=== PATIENT | female | born 1995 | race Caucasian/White ===

== ENCOUNTER → 2016-10-04 | Outpatient (CLI) | payer OTHER ==
[2016-10-04 20:00] LABS: BASO # 0.1 K/mm3 (0.0-0.2); BASO % 0.5 % (0.0-1.0); EOS # 0.1 K/mm3 (0.0-0.50); EOS % 0.8 % (0.0-3.0); LARGE UNSTAINED CELL # 0.2 K/mm3 (0.0-0.4); LARGE UNSTAINED CELL % 1.1 % (0.0-4.0); LYMPH # 2.9 K/mm3 (1.5-6.5); LYMPH % 17.9 % (24.0-44.0); MEAN CORPUSCULAR HEMOGLOBIN 31.4 pg (27.0-33.0); MEAN CORPUSCULAR VOLUME 95.2 fl (80.0-96.0); MONO # 0.8 K/mm3 (0.0-0.8); MONO % 5.1 % (0.0-5.0); NEUTROPHILS # 11.4 K/mm3 (1.8-7.7); NEUTROPHILS % 74.6 % (36.0-66.0); PLATELET COUNT, AUTOMATED 358 k/mm3 (150-450); RED CELL DISTRIBUTION WIDTH 12.6 % (11.5-14.5); WHITE BLOOD COUNT 15.3 K/mm3 (4.0-10.0)
--- NOTE | 2016-10-04 22:11 | REP ---
Clinical: Anatomical evaluation. Comparison: 08/05/2016 . Findings: Examination demonstrates a single live intrauterine in breech presentation. motion is identified by technologist. Placenta is noted anteriorly and grade one without evidence for placenta previa or abruption. Amniotic fluid volume is normal. Cervix measures 5.7 cm in length and appears closed. No evidence for nuchal cord. Gestational age by first ultrasound 28 weeks 6 days with MACEY 12/21/2016 . Gestational age by current measurements 28 weeks 1 day with MACEY 12/26/2016 . FHR equals 144 beats per minute. Amniotic fluid index equals 9.6 cm (9.2 - 23.1) Estimated weight 1170 grams ( 24th percentile). Anatomical assessment demonstrates normal structures including cranium, choroid plexus, cavum, cerebellum/posterior fossa, facial features, lungs, four-chamber heart/ventricular outflow tracts, diaphragm, stomach, three-vessel cord, bladder, spine, and extremities. Mild renal pelviectasis (left greater than right) Impression: single live intrauterine in breech presentation demonstrating appropriate interval growth. Mild renal pelviectasis noted which may warrant follow-up. In conjunction with prior examination anatomical assessment is otherwise complete and normal. Signed by Jose Paez MD 10/04/2016 10:03 P
== END | disposition home or self-care (01) ==
LOC: M SMT 12:40
PROVIDERS: ATTEND Advanced Practice Midwife
DX: O32.1XX0 Maternal care for breech presentation, not applicable or unspecified (principal); Z36 Encounter for antenatal screening of mother; Z3A.28 28 weeks gestation of pregnancy; O36.8930 Maternal care for other specified fetal problems, third trimester, not applicable or unspecified

== ENCOUNTER → 2016-11-15 | Outpatient (CLI) | payer OTHER ==
--- NOTE | 2016-11-15 15:04 | REP ---
Clinical: Anatomical evaluation. Comparison: 10/04/2016 . Findings: Examination demonstrates a single live intrauterine in cephalic presentation. motion is identified by technologist. Placenta is noted anteriorly and grade one without evidence for placenta previa or abruption. Amniotic fluid volume is normal. Gestational age by first ultrasound 34 weeks 6 days with MACEY 12/21/2016 . Gestational age by current measurements 33 weeks 1 day with MACEY 01/02/2017 . FHR equals 144 beats per minute. Estimated weight 2407 grams ( 38th percentile). Amniotic fluid index equals 15.5 cm (7.9 - 24.9) SD ratio equals 2.41 (2.00 - 3.00). Left renal hydronephrosis appreciated. Impression: Single live intrauterine in cephalic presentation demonstrating appropriate interval growth. Amniotic fluid index normal. Left renal hydronephrosis; followup ultrasound is recommended. Signed by Jose Paez MD 11/15/2016 02:55 P
== END ==
LOC: M SMT 13:48
PROVIDERS: ATTEND Advanced Practice Midwife
DX: Z34.83 Encounter for supervision of other normal pregnancy, third trimester (principal)

== ENCOUNTER → 2016-11-22 | Outpatient (CLI) | payer OTHER ==
[2016-11-22 18:19] LABS: MEAN CORPUSCULAR HEMOGLOBIN 31.4 pg (27.0-33.0); MEAN CORPUSCULAR HGB CONC 34.5 g/dl (32.0-36.5); MEAN CORPUSCULAR VOLUME 91.1 fl (80.0-96.0); RED CELL DISTRIBUTION WIDTH 12.3 % (11.5-14.5); WHITE BLOOD COUNT 10.1 K/mm3 (4.0-10.0)
[2016-11-22 18:40] LABS: ALT/SGPT 21 U/L (12-78); AST/SGOT 14 U/L (15-37); BILIRUBIN,TOTAL 0.2 MG/DL (0.2-1.0); CREATININE FOR GFR 0.54 MG/DL (0.55-1.02); GLOMERULAR FILTRATION RATE > 60.0 (>60); URIC ACID 3.5 MG/DL (2.6-6.0)
== END ==
LOC: M SMT 14:25
PROVIDERS: ATTEND Advanced Practice Midwife
DX: O16.3 Unspecified maternal hypertension, third trimester (principal)

== ENCOUNTER 2016-12-29 10:56 | Inpatient (IN) | payer OTHER ==
[~2016-12-29] VITALS: Ht 162.6 cm; Wt 82.0 kg
[2016-12-29] MEDS ORDERED: TYLE325T5 PO (11:06)
[2016-12-29] MEDS ORDERED: ANTA500C PO (11:06)
[2016-12-29] MEDS ORDERED: PRENTAB9 PO (11:06)
[2016-12-29] MEDS ORDERED: LR 1,000 ML IV SCH (11:51)
[2016-12-29] MEDS ORDERED: OXYTOCIN DRIP 30 UNITS in APPROPRIATE DILUENT 1 EA IV SCH ×2 (12:00→21:33)
[2016-12-29] MEDS ORDERED: LACTATED RINGER'S 1000 ML IV ONE (12:00)
--- NOTE | 2016-12-29 12:20 | HPE ---
DATE OF ADMISSION: 12/29/2016 SUBJECTIVE: Rosemarie is a 21-year-old 1, para 0 at 41 weeks gestation with an EDC of 12/22/2016 based on first trimester ultrasound. She presents to labor and delivery today for induction of labor due to post-term per consult with Dr. Cady Ivey. care was initiated at [facility] in the first trimester. course has been complicated by mild renal pyelectasis. [employer] should be made aware at the time of delivery. OBSTETRICAL HISTORY: Primigravida. OB LABS: A+, antibody screen negative, rubella immune, VDRL nonreactive. Hep B surface antigen negative, HIV negative. Hep C antibody negative. She initially had a positive chlamydia with a test of cure negative on 07/05/2016 and gonorrhea was negative. She did decline all genetic serum screening markers. Her gestational diabetic screening was 63 and she is GBS negative. She did have an isolated elevated blood pressure during her and normal pre-eclamptic profile on labs and spot urine was normal as well and she never had another episode of elevated blood pressure. PAST MEDICAL HISTORY: Childhood varicella. SURGERIES: None. FAMILY HISTORY: Thyroid dysfunction, asthma. SOCIAL HISTORY: The patient is single. The father of baby is at bedside and supportive. She is a nonsmoker. Denies alcohol and drug use. No history of abuse, physical, sexual or emotional and again positive history of chlamydia during . ALLERGIES: No known drug allergies. CURRENT MEDICATIONS: vitamins. OBJECTIVE: Temperature 98.2, pulse 104, respirations 18, BP is 139/85. She is alert and oriented times three. heart rate is 130 with moderate variability, positive accelerations observed. She did have a prolonged deceleration during the cervical exam that lasted four minutes and did return to baseline with good variability and continued accelerations. Her abdomen is gravid, cephalic presentation. Estimated weight about 8 pounds. Sterile vaginal exam 2 cm dilated, 90% effaced, minus two station. ASSESSMENT: Intrauterine . heart rate category 1 at this time. Post-term . PLAN: Admit the patient to labor and delivery. Labs including pre eclamptic profile. Out of bed ad lester. N.p.o. at this time. I do plan on starting IV Pitocin for labor induction and anticipate a labor. Did review risks to induction with the patient including increased risk for section, failed induction to labor and intolerance to labor. The patient has all of her questions answered and does desire to proceed with induction. MTDD
[2016-12-29 12:49] LABS: MEAN CORPUSCULAR HEMOGLOBIN 28.9 pg (27.0-33.0); MEAN CORPUSCULAR HGB CONC 32.4 g/dl (32.0-36.5); MEAN CORPUSCULAR VOLUME 89.4 fl (80.0-96.0); RED CELL DISTRIBUTION WIDTH 12.7 % (11.5-14.5); WHITE BLOOD COUNT 13.8 K/mm3 (4.0-10.0)
[2016-12-29 14:06] LABS: ALT/SGPT 18 U/L (12-78); AST/SGOT 15 U/L (15-37); BILIRUBIN,TOTAL 0.1 MG/DL (0.2-1.0); CREATININE FOR GFR 0.59 MG/DL (0.55-1.02); GLOMERULAR FILTRATION RATE > 60.0 (>60); URIC ACID 4.4 MG/DL (2.6-6.0)
[2016-12-29] MEDS ORDERED: PROMETHAZINE INJ 25 MG/ML VIAL (J2550) IV ONE (15:30)
[2016-12-29] MEDS ORDERED: BUTORPHANOL 2 MG/ML INJ (J0595) IV ONE (15:30)
[2016-12-29] MEDS ORDERED: ONDANSETRON 4MG/2ML VIAL (J2405) IV ONE (18:15)
[2016-12-29 19:08] VITALS: BP 143/76
[2016-12-29] MEDS ORDERED: FENTANYL 2MCG/ML ROPIVACAINE 0.2% IN 0.9% NACL 200ML IVBAG As Ordered ONE (19:41)
[2016-12-29] MEDS ORDERED: MEASLES,MUMPS,RUBELLA VACCINE INJ (MMR-II) (90707) SC SCH (21:45)
[2016-12-29] MEDS ORDERED: MOM 30ML SUSPENSION UDC PO PRN (21:45)
[2016-12-29] MEDS ORDERED: DIBUCAINE 1% OINTMENT 30GM TOP PRN (21:45)
[2016-12-29] MEDS ORDERED: RHOGAM 300 MCG (1500 IU) INJ (J2790) IM SCH (21:45)
[2016-12-29] MEDS ORDERED: METHYLERGONOVINE MALEATE 0.2 MG TAB PO PRN (21:45)
[2016-12-29] MEDS ORDERED: ANUSOL HC CREAM 30GM TOP PRN (21:45)
[2016-12-29] MEDS ORDERED: LIDOCAINE 1% MDV INJ 50 ML VIAL INFIL ONE (21:45)
--- NOTE | 2016-12-29 21:49 | DN ---
DATE: 12/29/2016 Rosemarie is a 21-year-old 1, para 1-0-0-1 now who was admitted to labor and delivery for induction of labor due to post-term . Intravenous (IV) Pitocin was started and labor ensued. She did utilize IV pain medications for her labor coping. She had spontaneous rupture of membranes for moderate amount of clear fluid at 1950 hours. She reached full dilation at 2000 hours. She pushed to a normal spontaneous vaginal delivery of a live male in occiput anterior (OA) position with restitution to left occiput transverse (LOT) position at 2031 hours. The shoulders delivered with gentle downward guidance and the corpus immediately followed. There was no nuchal cord. The was placed on the maternal abdomen, crying and active, bulb suctioned mouth and nares. Placenta was clamped times two and cut by the father of the baby under my direction. A spontaneous expulsion of an intact placenta with three-vessel cord by Mendoza mechanism was at 2054 hours. Uterine hemostasis achieved with uterine fundal massage and IV Pitocin rapid infusion. Estimated blood loss 500 mL. Upon inspection of the perineum and vagina and there was noted to be a right sulcus laceration as well as a right labial laceration. The lacerations were infiltrated with 1% lidocaine and repaired with #3-0 Rapide in the usual fashion. [place] male weighed 3330 grams, 7 pounds 5 ounces and scores were 9 and 9. The family have decided to name him Abiodun, and the mom is going to breastfeed. At the close of delivery, needle counts, instrument counts and lap counts were correct and verified.
[2016-12-29] MEDS: IBUPROFEN 800 MG TAB PO PRN (22:22)
[2016-12-29 22:47] VITALS: BP 135/88
[2016-12-30] MEDS: ACETAMINOPHEN 500 MG TAB PO PRN ×3 (04:18→21:22)
[2016-12-30 05:42] VITALS: BP 142/67
[2016-12-30] MEDS: IBUPROFEN 800 MG TAB PO PRN ×2 (06:06→14:05)
[2016-12-30] MEDS: DOCUSATE SODIUM 100 MG CAP PO SCH ×3 (08:42→21:22)
[2016-12-30] MEDS: PRENATAL VITAMIN TAB PO SCH (08:42)
[2016-12-30 18:13] VITALS: BP 129/70
[2016-12-31] MEDS: IBUPROFEN 800 MG TAB PO PRN ×2 (02:01→11:45)
[2016-12-31 05:45] VITALS: BP 133/75
[2016-12-31] MEDS: PRENATAL VITAMIN TAB PO SCH (08:31)
[2016-12-31] MEDS ORDERED: PRENTAB9 PO (08:58)
[2016-12-31] MEDS ORDERED: ACET50TA PO (10:36)
[2016-12-31] MEDS ORDERED: IBUP-1114 PO (10:37)
[2016-12-31] MEDS ORDERED: ADACEL/BOOSTRIX VACCINE (DIPHTH/PERTUSS/ACELL/TETANUS)0.5ML SYR (90715) IM ONE (11:45)
== END 2016-12-31 12:45 | disposition home or self-care (01) | DRG 560 ==
LOC: M LDI 10:56 → M OBS 22:47
PROVIDERS: ADMIT Advanced Practice Midwife; ATTEND Advanced Practice Midwife
PROC: 10E0XZZ Delivery of Products of Conception, External Approach (ICD-10-PCS; principal; 2016-12-29)
PROC: 0HQ9XZZ Repair Perineum Skin, External Approach (ICD-10-PCS; 2016-12-29)
PROC: 3E033VJ Introduction of Other Hormone into Peripheral Vein, Percutaneous Approach (ICD-10-PCS; 2016-12-29)
DX: O48.0 Post-term pregnancy (principal); O70.0 First degree perineal laceration during delivery; Z3A.41 41 weeks gestation of pregnancy; Z37.0 Single live birth

== ENCOUNTER → 2017-09-13 | Outpatient (REF) | payer OTHER ==
[~2017-09-13] MED LIST: ACET50TA PO; ANTA500C PO; IBUP-1114 PO; PRENTAB9 PO; TYLE325T5 PO
== END ==
LOC: M LAB REF 11:03
PROVIDERS: ATTEND Advanced Practice Midwife
DX: Z12.4 Encounter for screening for malignant neoplasm of cervix (principal)

== ENCOUNTER → 2018-06-22 | Outpatient (REF) | payer OTHER ==
[2018-06-22 20:28] LABS: CHLAMYDIA DNA AMPLIFICATION NEGATIVE (NEGATIVE); GC DNA AMPLIFICATION NEGATIVE (NEGATIVE)
== END ==
LOC: M LAB REF 16:58
DX: Z11.3 Encounter for screening for infections with a predominantly sexual mode of transmission (principal)

== ENCOUNTER → 2018-06-22 | Outpatient (REF) | payer OTHER | LOC: M LAB REF 13:23 | DX: R30.0 Dysuria (principal) ==

== ENCOUNTER → 2018-07-11 | Outpatient (REF) | payer OTHER ==
[2018-07-13 13:48] LABS: HEPATITIS A ANTIBODY IGM NEGATIVE (NEGATIVE); HEPATITIS B CORE ANTIBODY IGM NEGATIVE (NEGATIVE); HEPATITIS B SURFACE ANTIGEN NEGATIVE (NEGATIVE); HIV 1&2 SCREEN CENTAUR NEGATIVE (NEGATIVE)
[2018-07-13 13:48] LABS: HEPATITIS C VIRUS ABY INDEX < 0.0 INDEX (<0.8)
== END ==
LOC: M LABDRAW1 07-12 14:40
DX: Z11.3 Encounter for screening for infections with a predominantly sexual mode of transmission (principal)

== ENCOUNTER 2018-10-20 10:54 | Emergency (ER) | payer OTHER ==
[~2018-10-20] VITALS: Ht 160 cm; Wt 68.2 kg
[~2018-10-20 10:54] MED LIST changes: -ACET50TA PO; +MAPA500T2 PO
[2018-10-20 11:40] LABS: BASO % 0.3 % (0.0-1.0); EOS # 0.1 10^3/uL (0.0-0.50); HEMATOCRIT 38.4 % (36.0-47.0); HEMOGLOBIN 12.5 g/dl (12.0-15.5); LYMPH # 3.1 10^3/uL (1.5-6.5); LYMPH % 26.9 % (24.0-44.0); MEAN CORPUSCULAR HEMOGLOBIN 29.6 pg (27.0-33.0); MEAN CORPUSCULAR HGB CONC 32.6 g/dl (32.0-36.5); MONO # 0.8 10^3/uL (0.0-0.8); MONO % 6.8 % (0.0-5.0); NEUTROPHILS # 7.5 10^3/uL (1.8-7.7); NEUTROPHILS % 64.7 % (36.0-66.0); PLATELET COUNT, AUTOMATED 500 10^3/uL (150-450); RED BLOOD COUNT 4.22 10^6/uL (4.00-5.40); WHITE BLOOD COUNT 11.6 10^3/uL (4.0-10.0)
[2018-10-20 13:44] LABS: CHLAMYDIA DNA AMPLIFICATION NEGATIVE (NEGATIVE); GC DNA AMPLIFICATION NEGATIVE (NEGATIVE)
--- NOTE | 2018-10-20 14:07 | REP ---
FIRST TRIMESTER OB AND ENDOVAGINAL PROBE ULTRASOUND: 10/20/2018. Clinical history: Vaginal bleeding. HCG = 14. Both transabdominal and endovaginal probes utilized. Bladder shows almost no urine within. Uterus anteverted and measuring 9.5 x 3.8 x 5.6 cm. On the endovaginal probe. The endometrial stripe has a thickness of up to 5.7 mm. There is no evidence of a gestational sac or pseudogestational sac. No fluid in the endometrial cavity or endocervical canal. Uterine contour smooth and regular. Right ovary is 3.6 x 3 x 3.5 cm and there is a dominant follicle 1.6 x 1 0.6-month 1 cm. Doppler tracing shows resistive index of 0.56. The left ovary is 2.6 x 2.9 x 2.3 cm with Doppler tracing showing resistive index 0.73. No cyst or solid mass in the right ovary. No pelvic free fluid. Impression: 1. No visualization of an intrauterine gestational sac. The findings could represent very early gestation before the sac can visualized but other considerations include a spontaneous . Ectopic is difficult to entirely exclude. There are no compelling signs suggested for that. 2. Dominant follicle 1.6 x 1.6 cm right ovary. No free fluid. 3. Recommend follow up with HCG and ultrasound follow-up only if clinically appropriate. Electronically Signed by Jb Thomson MD 10/20/2018 02:09 P
[2018-10-20 14:35] VITALS: BP 110/68
== END 2018-10-20 14:44 | disposition home or self-care (01) ==
LOC: M ED 10:54
DX: O20.9 Hemorrhage in early pregnancy, unspecified (principal); Z88.0 Allergy status to penicillin; Z88.1 Allergy status to other antibiotic agents; Z3A.01 Less than 8 weeks gestation of pregnancy

== ENCOUNTER → 2018-10-22 | Outpatient (CLI) | payer OTHER | LOC: M LAB 12:38 | PROVIDERS: ATTEND Physician Assistant | DX: O26.851 Spotting complicating pregnancy, first trimester (principal); Z3A.00 Weeks of gestation of pregnancy not specified ==

== ENCOUNTER → 2018-12-28 | Outpatient (CLI) | payer OTHER ==
[2018-12-28 17:40] LABS: HCG, SERUM QUALITATIVE NEGATIVE (NEGATIVE)
== END ==
LOC: M SMT 14:34
PROVIDERS: ATTEND Advanced Practice Midwife
DX: N93.8 Other specified abnormal uterine and vaginal bleeding (principal)

== ENCOUNTER → 2018-12-31 | Outpatient (REF) | payer OTHER ==
[2018-12-31 14:04] LABS: FOLATE 12.3 NG/ML; RHEUMATOID FACTOR QUANT < 10.0 IU/ML (<15.0)
[2019-01-01 10:18] LABS: ALBUMIN 4.75 GM/DL (3.29-5.55); ALBUMIN % 59.4 % (55.8-66.1); ALPHA-1-GLOBULIN % 4.6 % (2.9-4.9); ALPHA-1-GLOBULINS 0.37 GM/DL (0.17-0.41); ALPHA-2-GLOBULINS 0.78 GM/DL (0.42-0.99); ALPHA-2-GLOBULINS % 9.8 % (7.1-11.8); BETA-1-GLOBULINS 0.54 GM/DL (0.28-0.60); BETA-1-GLOBULINS % 6.8 % (4.7-7.2); GAMMA GLOBULIN % 14.4 % (11.1-18.8); GAMMA GLOBULINS 1.15 GM/DL (0.65-1.58)
[2019-01-01 14:05] LABS: VITAMIN B12 LEVEL 430 PG/ML
[2019-01-01 14:53] LABS: ANTINUCLEAR ANTIBODIES DIRECT Negative (Negative)
[2019-01-04 00:06] LABS: VITAMIN B6,PYRIDOXAL PHOSPHATE 24.1 ug/L (2.0-32.8); VITAMIN E(ALPHA TOCOPHEROL) 6.6 mg/L (5.9-19.4); VITAMIN E(GAMMA TOCOPHEROL) 1.2 mg/L (0.7-4.9)
== END ==
LOC: M LABNEURO 11:18
PROVIDERS: ATTEND Psychiatry & Neurology Neurology
DX: R20.2 Paresthesia of skin (principal)

== ENCOUNTER → 2019-01-03 | Outpatient (CLI) | payer OTHER ==
[~2019-01-03] MED LIST changes: -ANTA500C PO; +CALC1CHW3 PO
--- NOTE | 2019-01-04 08:54 | REP ---
MR LUMBAR SPINE WITHOUT CONTRAST: HISTORY: Back pain. There is no disc bulge or herniation at the L1-2, L2-3, and L5-S1 levels. The nerves exit the neural foramina without compression. A diffuse disc bulge is present at the L3-4 level. There is minimal compression of the thecal sac. The L3 nerves exit the neural foramina without compression. A diffuse disc bulge is present at the L4-5 level. There is minimal compression of the thecal sac. The L4 nerves exit the neural foramina without compression. The conus medullaris is normal in appearance terminating at the level of the T12-L1 intervertebral disc. Normal signal intensity is present in the lumbar interval discs and vertebral bodies. IMPRESSION: Diffuse disc bulges at the L3-4 and L4-5 levels with minimal thecal sac compression. Electronically Signed by Tyrone Alvares MD 01/04/2019 09:00 A
== END ==
LOC: M RAD 16:34
PROVIDERS: ATTEND Family Medicine
DX: M51.26 Other intervertebral disc displacement, lumbar region (principal)

== ENCOUNTER → 2019-01-07 | Outpatient (CLI) | payer OTHER ==
[2019-01-07 15:57] LABS: ALBUMIN 4.2 GM/DL (3.2-5.2); ALT/SGPT 17 U/L (12-78); AMYLASE 31 U/L (25-115); BILIRUBIN,DIRECT < 0.1 MG/DL (0.0-0.2); BILIRUBIN,TOTAL 0.4 MG/DL (0.2-1.0); LIPASE 123 U/L (73-393); TOTAL PROTEIN 7.5 GM/DL (6.4-8.2)
== END ==
LOC: M LAB 14:35
PROVIDERS: ATTEND Physician Assistant Medical
DX: R10.9 Unspecified abdominal pain (principal)

== ENCOUNTER → 2019-01-08 | Outpatient (REF) | payer OTHER ==
[2019-01-08 13:15] LABS: APPEARANCE, URINE HAZY (CLEAR); BACTERIA, URINE AUTO NEGATIVE (NEGATIVE); BILIRUBIN, URINE AUTO NEGATIVE (NEGATIVE); BLOOD, URINE BLOOD NEGATIVE (NEGATIVE); COLOR, URINE YELLOW (YELLOW); GLUCOSE, URINE (UA) AUTO NEGATIVE (NEGATIVE); KETONE, URINE AUTO NEGATIVE (NEGATIVE); LEUKOCYTE ESTERASE, URINE AUTO NEGATIVE (NEGATIVE); MUCUS, URINE SMALL (NEGATIVE); NITRITE, URINE AUTO NEGATIVE (NEGATIVE); PROTEIN, URINE AUTO NEGATIVE (NEGATIVE); RBC, URINE AUTO 0 /HPF (0-3); SPECIFIC GRAVITY URINE AUTO 1.021 (1.002-1.035); SQUAMOUS EPITHELIAL CELL UR AU 4 /HPF (0-6); UROBILINOGEN, URINE AUTO 0.2 mg/dL (0.0-2.0); WBC, URINE AUTO 0 /HPF (0-3)
[2019-01-08 13:19] LABS: BASO % 0.3 % (0.0-1.0); EOS # 0.1 10^3/uL (0.0-0.50); EOS % 1.1 % (0.0-3.0); HEMATOCRIT 40.9 % (36.0-47.0); HEMOGLOBIN 13.4 g/dl (12.0-15.5); LYMPH # 2.1 10^3/uL (1.5-6.5); LYMPH % 23.6 % (24.0-44.0); MEAN CORPUSCULAR HEMOGLOBIN 30.3 pg (27.0-33.0); MEAN CORPUSCULAR HGB CONC 32.8 g/dl (32.0-36.5); MEAN CORPUSCULAR VOLUME 92.5 fl (80.0-96.0); MONO # 0.6 10^3/uL (0.0-0.8); MONO % 6.3 % (0.0-5.0); NEUTROPHILS % 68.5 % (36.0-66.0); PLATELET COUNT, AUTOMATED 425 10^3/uL (150-450); RED BLOOD COUNT 4.42 10^6/uL (4.00-5.40); WHITE BLOOD COUNT 8.8 10^3/uL (4.0-10.0)
[2019-01-08 13:33] LABS: ALBUMIN 4.3 GM/DL (3.2-5.2); ALT/SGPT 19 U/L (12-78); BILIRUBIN,TOTAL 0.4 MG/DL (0.2-1.0); BLOOD UREA NITROGEN 15 MG/DL (7-18); CALCIUM LEVEL 9.5 MG/DL (8.5-10.1); CARBON DIOXIDE LEVEL 24 MEQ/L (21-32); CHLORIDE LEVEL 106 MEQ/L (98-107); CHOLESTEROL LEVEL 146 MG/DL (<200); CHOLESTEROL RISK RATIO 2.179 (<5); CREATININE FOR GFR 0.65 MG/DL (0.55-1.30); GLOMERULAR FILTRATION RATE > 60.0 (>60); GLUCOSE, FASTING 104 MG/DL (70-100); HDL CHOLESTEROL 67 MG/DL (>40); LDL CHOLESTEROL 66 MG/DL (<100); NON-HDL-C 79 MG/DL; POTASSIUM SERUM 4.7 MEQ/L (3.5-5.1); SODIUM LEVEL 136 MEQ/L (136-145); THYROXINE (T4) 7.5 UG/DL (4.5-12.0); TOTAL 25(OH) VITAMIN D 25.6 NG/ML (30.0-100.0); TOTAL PROTEIN 7.7 GM/DL (6.4-8.2); TRIGLYCERIDES LEVEL 67 MG/DL (<150)
[2019-01-08 13:54] LABS: HEMOGLOBIN A1c 5.5 %
[2019-01-10 00:06] LABS: Lyme Disease IgG/IgM Antibodie <0.91 ISR (0.00-0.90); Lyme Disease IgM Ab Quantitati <0.80 index (0.00-0.79)
== END ==
LOC: M LAB REF 12:15
PROVIDERS: ATTEND Family Medicine
DX: Z13.228 Encounter for screening for other metabolic disorders (principal); Z00.01 Encounter for general adult medical examination with abnormal findings

== ENCOUNTER → 2020-12-09 | Outpatient (REF) | payer OTHER ==
[2020-12-09 13:40] LABS: APPEARANCE, URINE CLOUDY (CLEAR); BACTERIA, URINE AUTO NEGATIVE (NEGATIVE); BILIRUBIN, URINE AUTO NEGATIVE (NEGATIVE); BLOOD, URINE BLOOD NEGATIVE (NEGATIVE); COLOR, URINE YELLOW (YELLOW); GLUCOSE, URINE (UA) AUTO NEGATIVE (NEGATIVE); KETONE, URINE AUTO NEGATIVE (NEGATIVE); LEUKOCYTE ESTERASE, URINE AUTO 1+ (NEGATIVE); MUCUS, URINE SMALL (NEGATIVE); NITRITE, URINE AUTO NEGATIVE (NEGATIVE); PROTEIN, URINE AUTO NEGATIVE (NEGATIVE); RBC, URINE AUTO 9 /HPF (0-3); SQUAMOUS EPITHELIAL CELL UR AU 9 /HPF (0-6); UROBILINOGEN, URINE AUTO 0.2 mg/dL (0.0-2.0); WBC, URINE AUTO 5 /HPF (0-3)
== END ==
LOC: M LAB REF 12:51
PROVIDERS: ATTEND Physician Assistant
DX: N39.0 Urinary tract infection, site not specified (principal)

== ENCOUNTER → 2021-01-11 | Outpatient (REF) | payer OTHER ==
[2021-01-11 14:02] LABS: APPEARANCE, URINE CLEAR (CLEAR); BACTERIA, URINE AUTO NEGATIVE (NEGATIVE); BILIRUBIN, URINE AUTO NEGATIVE (NEGATIVE); BLOOD, URINE BLOOD 1+ (NEGATIVE); COLOR, URINE YELLOW (YELLOW); GLUCOSE, URINE (UA) AUTO NEGATIVE (NEGATIVE); KETONE, URINE AUTO NEGATIVE (NEGATIVE); LEUKOCYTE ESTERASE, URINE AUTO 3+ (NEGATIVE); NITRITE, URINE AUTO NEGATIVE (NEGATIVE); PROTEIN, URINE AUTO NEGATIVE (NEGATIVE); RBC, URINE AUTO 2 /HPF (0-3); SPECIFIC GRAVITY URINE AUTO 1.012 (1.002-1.035); SQUAMOUS EPITHELIAL CELL UR AU 2 /HPF (0-6); UROBILINOGEN, URINE AUTO 0.2 mg/dL (0.0-2.0); WBC, URINE AUTO 31 /HPF (0-3)
== END ==
LOC: M LAB REF 12:48
PROVIDERS: ATTEND Physician Assistant Medical
DX: R30.0 Dysuria (principal)

== ENCOUNTER → 2021-10-11 | Outpatient (REF) | payer OTHER ==
[2021-10-11 12:41] LABS: APPEARANCE, URINE CLEAR (CLEAR); BACTERIA, URINE AUTO NEGATIVE (NEGATIVE); BILIRUBIN, URINE AUTO NEGATIVE (NEGATIVE); BLOOD, URINE BLOOD NEGATIVE (NEGATIVE); COLOR, URINE YELLOW (YELLOW); GLUCOSE, URINE (UA) AUTO NEGATIVE (NEGATIVE); KETONE, URINE AUTO NEGATIVE (NEGATIVE); LEUKOCYTE ESTERASE, URINE AUTO NEGATIVE (NEGATIVE); MUCUS, URINE SMALL (NEGATIVE); NITRITE, URINE AUTO NEGATIVE (NEGATIVE); PROTEIN, URINE AUTO NEGATIVE (NEGATIVE); RBC, URINE AUTO 1 /HPF (0-3); SPECIFIC GRAVITY URINE AUTO 1.018 (1.002-1.035); SQUAMOUS EPITHELIAL CELL UR AU 3 /HPF (0-6); UROBILINOGEN, URINE AUTO 0.2 mg/dL (0.0-2.0); WBC, URINE AUTO 0 /HPF (0-3)
== END ==
LOC: M LAB REF 12:17
PROVIDERS: ATTEND Physician Assistant Medical
DX: R30.0 Dysuria (principal)

== ENCOUNTER → 2022-02-09 | Outpatient (CLI) | payer OTHER | LOC: M WHC 14:12 | PROVIDERS: ATTEND Nurse Practitioner | DX: R10.2 Pelvic and perineal pain (principal) ==

== ENCOUNTER → 2022-02-09 | Outpatient (CLI) | payer OTHER ==
[2022-02-09 18:19] LABS: HEPATITIS C VIRUS ABY INDEX 0.1 INDEX (<0.8); HIV 1&2 SCREEN CENTAUR NEGATIVE (NEGATIVE)
== END ==
LOC: M PLALAB 13:50
PROVIDERS: ATTEND Nurse Practitioner
DX: Z01.419 Encounter for gynecological examination (general) (routine) without abnormal findings (principal)

== ENCOUNTER → 2024-05-02 | Outpatient (REF) | payer OTHER ==
[2024-05-02 17:05] LABS: BASO # 0.1 10^3/uL (0.0-0.2); BASO % 0.6 % (0.0-1.0); EOS # 0.1 10^3/uL (0.0-0.5); EOS % 1.2 % (0.0-3.0); HEMATOCRIT 37.3 % (36.0-47.0); HEMOGLOBIN 12.3 g/dl (12.0-15.5); LYMPH % 25.3 % (24.0-44.0); MEAN CORPUSCULAR HEMOGLOBIN 32.3 pg (27.0-33.0); MEAN CORPUSCULAR VOLUME 97.9 fl (80.0-96.0); MONO # 0.5 10^3/uL (0.0-0.8); NEUTROPHILS # 5.1 10^3/uL (1.5-8.5); NEUTROPHILS % 66.6 % (36.0-66.0); PLATELET COUNT, AUTOMATED 325 10^3/uL (150-450); RED BLOOD COUNT 3.81 10^6/uL (4.00-5.40); WHITE BLOOD COUNT 7.7 10^3/uL (4.0-10.0)
[2024-05-02 17:28] LABS: IRON (FE) 69 UG/DL (50-170); PERCENT SATURATION 21.1 % (13.2-45.0); TOTAL IRON BINDING CAPACITY 327 UG/DL (250-425)
[2024-05-02 17:30] LABS: THYROID STIMULATING HORMONE 2.281 uIU/ML (0.55-4.78)
[2024-05-02 17:39] LABS: Trichomonas vaginalis (AMP) NOT DETECTED (NEGATIVE)
[2024-05-02 18:00] LABS: HIV 1&2 SCREEN NEGATIVE (NEGATIVE)
[2024-05-02 18:02] LABS: GC DNA AMPLIFICATION NEGATIVE (NEGATIVE)
[2024-05-02 18:08] LABS: HEPATITIS C VIRUS ABY INDEX < 0.02 INDEX (<0.8)
== END ==
LOC: M LAB REF 16:18
PROVIDERS: ATTEND Physician Assistant
DX: N93.9 Abnormal uterine and vaginal bleeding, unspecified (principal); Z11.3 Encounter for screening for infections with a predominantly sexual mode of transmission; A64 Unspecified sexually transmitted disease; D64.9 Anemia, unspecified

== ENCOUNTER → 2024-05-23 | Outpatient (CLI) | payer OTHER | LOC: M WHC 13:53 | PROVIDERS: ATTEND Physician Assistant | DX: N93.9 Abnormal uterine and vaginal bleeding, unspecified (principal) ==

== ENCOUNTER → 2024-12-17 | Outpatient (CLI) | payer OTHER ==
[2024-12-17 10:45] LABS: HEMATOCRIT 36.1 % (36.0-47.0); HEMOGLOBIN 11.9 g/dl (12.0-15.5); MEAN CORPUSCULAR HEMOGLOBIN 31.2 pg (27.0-33.0); MEAN CORPUSCULAR VOLUME 94.5 fl (80.0-96.0); PLATELET COUNT, AUTOMATED 321 10^3/uL (150-450); RED BLOOD COUNT 3.82 10^6/uL (4.00-5.40); WHITE BLOOD COUNT 11.4 10^3/uL (4.0-10.0)
[2024-12-17 11:46] LABS: HIV 1&2 SCREEN NEGATIVE (NEGATIVE)
[2024-12-17 11:54] LABS: HEPATITIS C VIRUS ABY INDEX 0.04 INDEX (<0.8)
[2024-12-17 12:38] LABS: Trichomonas vaginalis (AMP) NOT DETECTED (NEGATIVE)
[2024-12-17 13:02] LABS: GC DNA AMPLIFICATION NEGATIVE (NEGATIVE)
== END ==
LOC: M PLALAB 09:19
PROVIDERS: ATTEND Advanced Practice Midwife
DX: Z34.82 Encounter for supervision of other normal pregnancy, second trimester (principal)

== ENCOUNTER → 2025-01-16 | Outpatient (CLI) | payer OTHER | LOC: M WHC 08:31 | PROVIDERS: ATTEND Specialist | DX: Z34.82 Encounter for supervision of other normal pregnancy, second trimester (principal) ==

== ENCOUNTER → 2025-04-10 | Outpatient (CLI) | payer OTHER | LOC: M WHC 13:28 | PROVIDERS: ATTEND Specialist | DX: Z34.92 Encounter for supervision of normal pregnancy, unspecified, second trimester (principal) ==

== ENCOUNTER → 2025-05-14 | Outpatient (REF) | payer OTHER | LOC: M PLALAB 13:10 | PROVIDERS: ATTEND Advanced Practice Midwife | DX: Z34.93 Encounter for supervision of normal pregnancy, unspecified, third trimester (principal); Z3A.36 36 weeks gestation of pregnancy ==

== ENCOUNTER 2025-06-11 18:19 | Inpatient (IN) | payer MEDICAID, OTHER, SELFPAY ==
[~2025-06-11] VITALS: Ht 162.6 cm; Wt 89.9 kg
[2025-06-11 18:33] VITALS: BP 129/75
[2025-06-11] MEDS ORDERED: FAMO20TA PO (18:35)
[2025-06-11] MEDS ORDERED: CARBOPROST TROMETHAMINE 250 MCG/ML AMP IM PRN (18:55)
[2025-06-11] MEDS ORDERED: OXYTOCIN DRIP 30 UNITS in IV 1 EA IV PRN (18:55)
[2025-06-11] MEDS ORDERED: METHYLERGONOVINE MALEATE 0.2 MG/ML 1 ML VIAL IM PRN (18:55)
[2025-06-11] MEDS ORDERED: OXYTOCIN INJ 10UNITS/ML 1ML VIAL IM PRN (18:55)
[2025-06-11] MEDS ORDERED: TRANEXAMIC ACID INJection 1,000 MG in NS 100 ML IV PRN (18:55)
[2025-06-11] MEDS ORDERED: OXYTOCIN INJ 10UNITS/ML 1ML VIAL IV PRN (18:55)
[2025-06-11] MEDS: PENICILLIN G POTASSIUM 5 MU IV 5 MU in DEXTROSE 5% (D5W) MINI-BAG PLU 100 ML IV STA (19:09)
[2025-06-11] MEDS: BUTORPHANOL 2 MG/ML 1 ML VIAL IV ONE (19:22)
[2025-06-11 19:29] LABS: PLATELET COUNT, AUTOMATED 452 10^3/uL (150-450)
[2025-06-11] MEDS ORDERED: LR 1,000 ML IV SCH (19:30)
[2025-06-11] MEDS ORDERED: OXYTOCIN DRIP 30 UNITS in IV 1 EA IV SCH (19:30)
[2025-06-11 20:25] LABS: HIV 1&2 SCREEN NEGATIVE (NEGATIVE)
[2025-06-11 20:33] LABS: HEPATITIS C VIRUS ABY INDEX < 0.02 INDEX (<0.8)
[2025-06-11] MEDS ORDERED: PEN G POT 3,000,000 UNIT/50 ML 3,000,000 UNIT in IV 1 EA IV SCH (23:00)
[2025-06-12] MEDS ORDERED: DOCUSATE SODIUM 100 MG CAPSULE PO PRN
[2025-06-12] MEDS ORDERED: IBUPROFEN 600 MG TAB PO PRN
[2025-06-12] MEDS ORDERED: RHOGAM 300MCG (1500IU) INJ IM SCH
[2025-06-12] MEDS ORDERED: ACETAMINOPHEN 325 MG TAB PO PRN
[2025-06-12] MEDS ORDERED: METHYLERGONOVINE MALEATE 0.2 MG TAB PO PRN
[2025-06-12 01:27] VITALS: BP 125/66; O2SAT 98
[2025-06-12] MEDS: IBUPROFEN 800 MG TAB PO PRN (01:27)
[2025-06-12] MEDS: DIBUCAINE 1% OINTMENT 30 GM TOP PRN (01:27)
[2025-06-12] MEDS: LIDOCAINE 1% MDV 20 ML VIAL INFIL PRN (01:29)
[2025-06-12 06:00] VITALS: BP 130/67; O2SAT 100
[2025-06-12] MEDS: PRENATAL VITAMINS CHEWABLE TABLET PO SCH (07:47)
[2025-06-12] MEDS: ACETAMINOPHEN 500 MG TAB PO PRN (07:47)
[2025-06-12] MEDS: CALCIUM CARBONATE 500 MG CHEW U/D PO PRN (14:45)
[2025-06-12 18:00] VITALS: BP 121/68; O2SAT 99
[2025-06-13 06:00] VITALS: BP 108/70; O2SAT 98
[2025-06-13] MEDS ORDERED: MEASLES,MUMPS,RUBELLA VACCINE INJ (MMR-II) SC.IMMUN ONE (09:00)
== END 2025-06-13 13:30 | disposition home or self-care (01) | DRG 560 ==
LOC: M LDO 18:19 → M LDI 18:54 → M OBS 06-12 01:00
PROVIDERS: ADMIT Advanced Practice Midwife; ATTEND Advanced Practice Midwife
PROC: 10E0XZZ Delivery of Products of Conception, External Approach (ICD-10-PCS; principal; 2025-06-11)
PROC: 0HQ9XZZ Repair Perineum Skin, External Approach (ICD-10-PCS; 2025-06-11)
DX: O69.81X0 Labor and delivery complicated by cord around neck, without compression, not applicable or unspecified (principal); O99.824 Streptococcus B carrier state complicating childbirth; Z3A.40 40 weeks gestation of pregnancy; Z79.899 Other long term (current) drug therapy; O70.0 First degree perineal laceration during delivery; Z37.0 Single live birth